=== PATIENT | female | born 1940 | race Caucasian/White ===

== ENCOUNTER → 2017-12-28 | Outpatient (CLI) | payer MEDICARE ==
[~2017-12-28] MED LIST: CALTTAB5 PO; CIPR500T2 PO; CO-Q 10; FENO50TA PO; HYDR2.5T PO; PROM25SU8 PO; SIMV20 PO; TAB-TAB PO; VITA400C70 PO
== END ==
LOC: CLAB 08:19
PROVIDERS: ATTEND Family Medicine
DX: R53.83 Other fatigue (principal)
CPT/HCPCS: 36415; 82140